=== PATIENT | female | born 1995 | race Caucasian/White ===

== ENCOUNTER 2023-12-10 09:59 | Emergency (ER) | payer BC ==
[~2023-12-10] VITALS: Ht 157.5 cm; Wt 77.1 kg
[2023-12-10 10:08] VITALS: BP 125/87; PULSE 107; RESP 18; O2SAT 98
[2023-12-10 12:40] VITALS: TEMP 97.2
== END 2023-12-10 12:42 | disposition home or self-care (01) ==
LOC: ER 10:00
DX: R20.0 Anesthesia of skin (principal); H53.489 Generalized contraction of visual field, unspecified eye
CPT/HCPCS: 70450; 82948; 99284